=== PATIENT | female | born 1965 | race Caucasian/White ===

== ENCOUNTER 2022-08-19 12:23 | Outpatient (CLI) | payer MEDICARE, BC, SELFPAY | END 2022-08-19 12:24 | disposition home or self-care (01) | LOC: WOUND 12:23 | PROVIDERS: PCP Physician Assistant; Visit Provider Surgery | DX: E11.22 Type 2 diabetes mellitus with diabetic chronic kidney disease (principal); N18.30 Chronic kidney disease, stage 3 unspecified; E08.621 Diabetes mellitus due to underlying condition with foot ulcer; L97.522 Non-pressure chronic ulcer of other part of left foot with fat layer exposed; Z79.4 Long term (current) use of insulin; M21.372 Foot drop, left foot | CPT/HCPCS: 11042; 99204 ==

== ENCOUNTER 2022-10-07 14:30 | Outpatient (CLI) | payer MEDICARE, BC, SELFPAY | END 2022-10-07 14:31 | disposition home or self-care (01) | PROVIDERS: PCP Physician Assistant; Visit Provider Surgery | DX: E11.22 Type 2 diabetes mellitus with diabetic chronic kidney disease (principal); N18.30 Chronic kidney disease, stage 3 unspecified; E08.621 Diabetes mellitus due to underlying condition with foot ulcer; L97.522 Non-pressure chronic ulcer of other part of left foot with fat layer exposed; Z79.4 Long term (current) use of insulin; M21.372 Foot drop, left foot | CPT/HCPCS: 11042 ==

== ENCOUNTER 2022-10-14 14:27 | Outpatient (CLI) | payer MEDICARE, BC, SELFPAY | END 2022-10-14 14:28 | disposition home or self-care (01) | LOC: WOUND 14:27 | PROVIDERS: PCP Physician Assistant; Visit Provider Surgery | DX: E11.22 Type 2 diabetes mellitus with diabetic chronic kidney disease (principal); N18.30 Chronic kidney disease, stage 3 unspecified; E08.621 Diabetes mellitus due to underlying condition with foot ulcer; L97.522 Non-pressure chronic ulcer of other part of left foot with fat layer exposed; Z79.4 Long term (current) use of insulin | CPT/HCPCS: 97597 ==

== ENCOUNTER 2022-10-21 13:56 | Outpatient (CLI) | payer MEDICARE, BC, SELFPAY | END 2022-10-21 13:57 | disposition home or self-care (01) | LOC: WOUND 13:56 | PROVIDERS: PCP Physician Assistant; Visit Provider Surgery | DX: N18.30 Chronic kidney disease, stage 3 unspecified (principal); E08.621 Diabetes mellitus due to underlying condition with foot ulcer; L97.522 Non-pressure chronic ulcer of other part of left foot with fat layer exposed; Z79.4 Long term (current) use of insulin | CPT/HCPCS: 97597 ==

== ENCOUNTER 2022-10-28 14:50 | Outpatient (CLI) | payer MEDICARE, BC, SELFPAY | END 2022-10-28 14:51 | disposition home or self-care (01) | LOC: WOUND 14:51 | PROVIDERS: PCP Physician Assistant; Visit Provider Surgery | DX: E11.22 Type 2 diabetes mellitus with diabetic chronic kidney disease (principal); N18.30 Chronic kidney disease, stage 3 unspecified; E08.621 Diabetes mellitus due to underlying condition with foot ulcer; L97.522 Non-pressure chronic ulcer of other part of left foot with fat layer exposed; Z79.4 Long term (current) use of insulin; M21.372 Foot drop, left foot | CPT/HCPCS: 97597 ==

== ENCOUNTER 2022-12-02 14:13 | Outpatient (CLI) | payer MEDICARE, BC, SELFPAY | END 2022-12-02 14:14 | disposition home or self-care (01) | LOC: WOUND 14:14 | PROVIDERS: PCP Physician Assistant; Visit Provider Surgery | DX: G90.09 Other idiopathic peripheral autonomic neuropathy (principal); E08.621 Diabetes mellitus due to underlying condition with foot ulcer; L97.522 Non-pressure chronic ulcer of other part of left foot with fat layer exposed; Z79.4 Long term (current) use of insulin | CPT/HCPCS: 11042; 99212 ==

== ENCOUNTER 2022-12-09 14:20 | Outpatient (CLI) | payer MEDICARE, BC, SELFPAY | END 2022-12-09 14:21 | disposition home or self-care (01) | LOC: WOUND 14:20 | PROVIDERS: PCP Physician Assistant; Visit Provider Surgery | DX: G90.09 Other idiopathic peripheral autonomic neuropathy (principal); E08.22 Diabetes mellitus due to underlying condition with diabetic chronic kidney disease; L97.522 Non-pressure chronic ulcer of other part of left foot with fat layer exposed; Z79.4 Long term (current) use of insulin | CPT/HCPCS: 97597 ==

== ENCOUNTER 2022-12-16 14:30 | Outpatient (CLI) | payer MEDICARE, BC, SELFPAY | END 2022-12-16 14:31 | disposition home or self-care (01) | LOC: WOUND 14:30 | PROVIDERS: PCP Physician Assistant; Visit Provider Surgery | DX: E11.22 Type 2 diabetes mellitus with diabetic chronic kidney disease (principal); N18.30 Chronic kidney disease, stage 3 unspecified; L97.522 Non-pressure chronic ulcer of other part of left foot with fat layer exposed; Z79.4 Long term (current) use of insulin; G90.09 Other idiopathic peripheral autonomic neuropathy | CPT/HCPCS: 97597 ==

== ENCOUNTER 2022-12-23 14:10 | Outpatient (CLI) | payer MEDICARE, BC, SELFPAY | END 2022-12-23 14:11 | disposition home or self-care (01) | LOC: WOUND 14:10 | PROVIDERS: PCP Physician Assistant; Visit Provider Surgery | DX: G90.09 Other idiopathic peripheral autonomic neuropathy (principal); E08.22 Diabetes mellitus due to underlying condition with diabetic chronic kidney disease; N18.30 Chronic kidney disease, stage 3 unspecified; L97.522 Non-pressure chronic ulcer of other part of left foot with fat layer exposed; Z79.4 Long term (current) use of insulin | CPT/HCPCS: 97597 ==

== ENCOUNTER 2023-01-06 14:19 | Outpatient (CLI) | payer MEDICARE, BC, SELFPAY | END 2023-01-06 14:20 | disposition home or self-care (01) | LOC: WOUND 14:19 | PROVIDERS: PCP Physician Assistant; Visit Provider Surgery | DX: G90.09 Other idiopathic peripheral autonomic neuropathy (principal); E08.22 Diabetes mellitus due to underlying condition with diabetic chronic kidney disease; N18.30 Chronic kidney disease, stage 3 unspecified; L89.893 Pressure ulcer of other site, stage 3; Z79.4 Long term (current) use of insulin | CPT/HCPCS: 97597 ==

== ENCOUNTER 2023-02-03 14:17 | Outpatient (CLI) | payer MEDICARE, BC, SELFPAY | END 2023-02-03 14:18 | disposition home or self-care (01) | LOC: WOUND 14:17 | PROVIDERS: PCP Physician Assistant; Visit Provider Family Medicine | DX: G90.09 Other idiopathic peripheral autonomic neuropathy (principal); E08.22 Diabetes mellitus due to underlying condition with diabetic chronic kidney disease; N18.30 Chronic kidney disease, stage 3 unspecified; L89.893 Pressure ulcer of other site, stage 3; Z79.85 Long-term (current) use of injectable non-insulin antidiabetic drugs | CPT/HCPCS: 11042 ==